=== PATIENT | male | born 2000 | race Caucasian/White ===

== ENCOUNTER 2023-09-05 22:34 | Emergency (ER) | payer OTHER ==
[~2023-09-05] VITALS: Ht 195.6 cm; Wt 88.5 kg
[2023-09-05 22:40] VITALS: BP 136/77; PULSE 66; RESP 18; TEMP 98.3; O2SAT 97
[2023-09-05 22:57] VITALS: O2SAT 98
[2023-09-05] MEDS: LORazepam 1 MG TAB PO ONE (23:12)
[2023-09-05 23:25] LABS: BASOPHILS % (AUTO) 0.4 % (0.0-2.0); EOSINOPHILS # (AUTO) 0.1 K/uL (0-0.4); EOSINOPHILS % (AUTO) 1.5 % (0.0-4.0); HEMATOCRIT 45.8 % (36-52); HEMOGLOBIN 15.5 g/dL (12.0-18.0); LYMPHOCYTES # (AUTO) 2.7 K/uL (2.0-11.5); LYMPHOCYTES % (AUTO) 32.4 % (20.5-51.1); MEAN CORPUSCULAR HEMOGLOBIN 30 pg (27-31); MEAN CORPUSCULAR HGB CONC 34 g/dL (33-37); MEAN CORPUSCULAR VOLUME 88.4 fL (80-94); MONOCYTES # (AUTO) 0.8 K/uL (0.8-1.0); MONOCYTES % (AUTO) 9.6 % (1.7-9.3); NEUTROPHILS # (AUTO) 4.7 K/uL (1.8-7.7); NEUTROPHILS % (AUTO) 56.1 % (42.2-75.2); PLATELET COUNT (AUTO) 201 K/uL (140-450); RED BLOOD CELL COUNT(AUTO) 5.18 MIL/uL (4.20-6.10); RED CELL DISTRIBUTION WIDTH 13.4 % (11.6-13.7); WHITE BLOOD COUNT (AUTO) 8.3 K/uL (4.8-10.8)
[2023-09-05 23:37] LABS: AMPHETAMINE, URINE NEGATIVE ng/ml (NEG <=1000); BARBITURATE, URINE NEGATIVE ng/ml (NEG <=200); BENZODIAZEPINE, URINE NEGATIVE ng/mL (NEG <=200); CANNABINOID, URINE POSITIVE ng/mL (NEG <=50); COCAINE, URINE NEGATIVE ng/mL (NEG <=300); OPIATE, URINE NEGATIVE ng/mL (NEG <=2000); PHENCYCLIDINE SCREEN,URINE NEGATIVE ng/mL (NEG <=25)
[2023-09-05 23:47] LABS: ALANINE AMINOTRANSFERASE 22 U/L (12-78); ALKALINE PHOSPHATASE 73 U/L (50-136); ASPARTATE AMINOTRANSFERASE 15 U/L (15-37); BILIRUBIN,DIRECT 0.1 mg/dL (0.0-0.3); LIPASE 14 U/L (16-77); MAGNESIUM 2.1 mg/dL (1.8-2.4); TOTAL BILIRUBIN 0.3 mg/dL (0.0-1.0); TOTAL PROTEIN, SERUM 7.3 g/dL (6.4-8.2)
[2023-09-05 23:55] LABS: ANION GAP 12.7 (8-16); CALCIUM 9.2 mg/dL (8.5-10.1); CARBON DIOXIDE 25.8 mmol/L (21-32); POTASSIUM 3.5 mmol/L (3.5-5.1)
[2023-09-06] MEDS: KETOROLAC 30 MG/ML VIAL IM ONE (00:39)
[2023-09-06] MEDS ORDERED: NAPR-337 PO (01:13)
[2023-09-06 01:27] VITALS: BP 121/88; PULSE 84; RESP 12; TEMP 97.8; O2SAT 97
== END 2023-09-06 01:30 | disposition home or self-care (01) ==
LOC: MED 22:34
DX: R07.9 Chest pain, unspecified (principal); Z79.899 Other long term (current) drug therapy
CPT/HCPCS: 36415; 71045; 80048; 80076; 80305; 83690; 83735; 84484; 85025; 93005; 96372; 99285; J1885